=== PATIENT | female | born 1960 | race Caucasian/White ===

== ENCOUNTER 2022-05-29 11:04 | Outpatient (RCR) | payer BC, SELFPAY | END 2022-05-30 23:59 | disposition home or self-care (01) | LOC: CCIC 11:04 | PROVIDERS: PCP Family Medicine; Visit Provider Internal Medicine Hematology & Oncology | DX: C50.911 Malignant neoplasm of unspecified site of right female breast (principal); Z17.0 Estrogen receptor positive status [ER+]; C50.012 Malignant neoplasm of nipple and areola, left female breast; N95.2 Postmenopausal atrophic vaginitis; Z78.0 Asymptomatic menopausal state | CPT/HCPCS: 99212; 99214 ==

== ENCOUNTER 2022-06-06 13:47 | Outpatient (RCR) | payer MEDICARE, SELFPAY | END 2022-06-30 23:59 | disposition home or self-care (01) | LOC: CCIC 13:47 | PROVIDERS: PCP Physician Assistant Medical; Visit Provider Internal Medicine Hematology & Oncology | DX: C50.911 Malignant neoplasm of unspecified site of right female breast (principal) ==

== ENCOUNTER 2022-11-20 11:26 | Outpatient (RCR) | payer BC, SELFPAY ==
--- NOTE | 2022-11-26 13:15 | ONC.NURNOTE ---
At the request of Dr. Azul, Breast Cancer Index testing requested via online portal.
== END 2023-05-19 23:59 | disposition home or self-care (01) ==
LOC: CCIC 11:26
PROVIDERS: Visit Provider Internal Medicine Hematology & Oncology
DX: C50.911 Malignant neoplasm of unspecified site of right female breast (principal); Z17.0 Estrogen receptor positive status [ER+]; Z79.811 Long term (current) use of aromatase inhibitors; D05.12 Intraductal carcinoma in situ of left breast; Z90.12 Acquired absence of left breast and nipple; M85.80 Other specified disorders of bone density and structure, unspecified site; N95.2 Postmenopausal atrophic vaginitis
CPT/HCPCS: 99212; 99214

== ENCOUNTER 2023-07-16 13:45 | Outpatient (RCR) | payer BC, SELFPAY | END 2024-01-12 23:59 | disposition home or self-care (01) | LOC: CCIC 13:45 | PROVIDERS: PCP Family Medicine; Visit Provider Internal Medicine Hematology & Oncology | DX: C50.911 Malignant neoplasm of unspecified site of right female breast (principal); Z17.0 Estrogen receptor positive status [ER+]; C50.012 Malignant neoplasm of nipple and areola, left female breast; D05.12 Intraductal carcinoma in situ of left breast; N95.2 Postmenopausal atrophic vaginitis; Z90.13 Acquired absence of bilateral breasts and nipples | CPT/HCPCS: 99212; 99213; 99214 ==

== ENCOUNTER 2023-11-05 15:18 | Outpatient (CLI) | payer BC, SELFPAY ==
--- NOTE | 2023-11-05 15:30 | CRLHL7_ITS ---
For Patients: As a result of the Century Cures Act, medical imaging exams and procedure reports are released immediately into your electronic medical record. You may view this report before your referring provider. If you have questions, please contact your health care provider. DXA BONE MINERAL DENSITY STUDY Current height (in): 63.0. Weight (lb): 136.0. Menopause age: 55. Ethnicity: White. Reason for exam: Screening. Right breast cancer. 1. Have you had a previous hip or vertebral fracture? No. 2. Have you had any fractures during your adult life which did not result from significant trauma (e.g., auto accident)? No. 3. Did either of your parents have a hip fracture? No. 4. Do you smoke? No. 5. Have you ever taken Glucocorticoids? No. 6. Do you have rheumatoid arthritis? No. 7. Do you have secondary osteoporosis? No. 8. Do you drink 3 or more alcoholic drinks per day? No. 9. Are you being treated for osteoporosis? No. 10. Have you ever taken any of the following medications: Actonel, Evista, Fosamax, Miacalcin, Reclast, Boniva, Forteo, HRT (i.e. estrogen/hormone therapy), Protelos, Prolia, Vitamin D, Calcium, other ??? please specify. ANSWER: Yes, calcium, vitamin D. 11. Do you have any of the following medical conditions: Anorexia or bulimia, asthma or emphysema, end stage renal disease, hyperparathyroidism, any seizure disorders, cancer, inflammatory bowel diseases, hysterectomy, other ??? please specify. ANSWER: Yes, breast cancer. 12. What was your maximum height (inches)? 63. 13. Do you perform weight bearing exercise regularly? No. 14. Do you regularly consume dairy products? Yes. 15. Do you drink caffeinated beverages? Yes. 16. At what age did your period start? 13. 17. Are you premenopausal? No. 18. How many full term pregnancies have you had? 2. 19. Have you ever missed your period for more than 6 months in a row (not including or menopause)? No. TECHNIQUE: Bone mineral density study was performed using the [employer]. FINDINGS: The results of the study expressed as bone mineral density (BMD) are as follows: Lumbar spine L1 to L3: BMD: 0.983 g/cm2. T-score: -0.3. Z-score: 1.3 Neck Left: BMD: 0.597 g/cm2. T-score: -2.3. Z-score: -0.9 Right: BMD: 0.614 g/cm2. T-score: -2.1. Z-score: -0.7 Total Left: BMD: 0.755 g/cm2. T-score: -1.5. Z-score: -0.4 Right: BMD: 0.711 g/cm2. T-score: -1.9. Z-score: -0.8 IMPRESSION: *Osteopenia. *Comparison exams done prior to 05/2020 were performed on different unit, [employer]. COMPARISON: Compared with scan of 09/13/2021, the bone mineral density has increased by 10.0 percent at the spine and decreased by 4.6 percent at the hip. FRAX 10-year Fracture Risk Major Osteoporotic Fracture: 11 percent Hip Fracture: 1.8 percent Reported Risk Factors: [place] () Neck BMD = 0.597, BMI = 24.1 Bean Cuello M.D. Diagnostic Radiologist [email or web address] Transcribed: 11:07 am DW/Dictated by: Bean Cuello MD @ 11/06/2023 8:08:00 AM (Electronically Signed)
== END 2023-11-05 15:19 | disposition home or self-care (01) ==
LOC: RAD 15:19
PROVIDERS: PCP Family Medicine; Visit Provider Internal Medicine Hematology & Oncology
DX: Z13.820 Encounter for screening for osteoporosis (principal); M85.89 Other specified disorders of bone density and structure, multiple sites
CPT/HCPCS: 77080

== ENCOUNTER 2024-08-23 14:13 | Outpatient (RCR) | payer MEDICARE, SELFPAY | END 2025-02-19 23:59 | disposition home or self-care (01) | LOC: CCIC 14:13 | PROVIDERS: PCP Family Medicine; Visit Provider Internal Medicine Hematology & Oncology | DX: C50.911 Malignant neoplasm of unspecified site of right female breast (principal); D05.12 Intraductal carcinoma in situ of left breast; C50.012 Malignant neoplasm of nipple and areola, left female breast; Z17.0 Estrogen receptor positive status [ER+]; M81.0 Age-related osteoporosis without current pathological fracture; Z90.13 Acquired absence of bilateral breasts and nipples | CPT/HCPCS: 99214; G0463 ==

== ENCOUNTER 2024-09-21 10:05 | Outpatient (CLI) | payer MEDICARE, SELFPAY ==
--- NOTE | 2024-09-21 10:15 | CRLHL7_ITS ---
For Patients: As a result of the Century Cures Act, medical imaging exams and procedure reports are released immediately into your electronic medical record. You may view this report before your referring provider. If you have questions, please contact your health care provider. CLINICAL HISTORY: : Palpable unevenness, status post bilateral mastectomy with reconstruction, history breast cancer 9 years ago COMPARISON: CT chest 10/24/2020 TECHNIQUE: Real-time ultrasound imaging of left axillary soft tissues with imaging documentation. Scanning was performed by both the technologist and the radiologist. FINDINGS: Solid heterogeneous hypoechoic nodule within the subcutaneous fat in the left axilla measures 5 x 3 x 5 millimeters. Associated calcifications may be present. No fluid collection. Prominent bony ridge incidentally noted. IMPRESSION: Indeterminate solid hypoechoic nodule measuring 5 millimeters. RECOMMENDATIONS: Ultrasound-guided core needle biopsy should be attempted. The location is difficult and if biopsy is not successful the CT-PET scan should be considered. Results and recommendations were discussed with the patient at the time of the exam. Dictated by Bean Cuello MD @ 09/21/2024 1:00:49 PM (Electronically Signed)
== END 2024-09-21 10:06 | disposition home or self-care (01) ==
LOC: US 10:06
PROVIDERS: PCP Family Medicine; Visit Provider Internal Medicine Hematology & Oncology
DX: R22.32 Localized swelling, mass and lump, left upper limb (principal); Z85.3 Personal history of malignant neoplasm of breast
CPT/HCPCS: 76882

== ENCOUNTER 2024-10-11 08:00 | Outpatient (CLI) | payer MEDICARE, SELFPAY ==
--- NOTE | 2024-10-11 08:15 | CRLHL7_ITS ---
For Patients: As a result of the Century Cures Act, medical imaging exams and procedure reports are released immediately into your electronic medical record. You may view this report before your referring provider. If you have questions, please contact your health care provider. ULTRASOUND-GUIDED CORE NEEDLE BIOPSY OF LEFT AXILLARY SUBCUTANEOUS PALPABLE NODULE WITH CLIP PLACEMENT CLINICAL HISTORY: Postmastectomy. Left axillary lump. COMPARISON STUDIES: Ultrasound 09/21/2024 TECHNIQUE: Real-time ultrasound with image documentation was used for targeting the left axillary lesion. Core biopsy specimens were obtained using an automated gun with an 18-gauge biopsy needle. CONSENT and TIME OUT: The procedure, risks, and alternatives were explained to the patient and a consent was signed. [place] Protocol was followed including pre-procedure verification that relevant information/documentation was available, reviewed and properly matched to the patient; consent accurate and complete; and equipment and supplies available. Time Out was conducted just prior to starting procedure to verify the four required elements: patient identity, correct side/site marked (if applicable), procedure, relevant images/results properly labeled and displayed (if applicable). PROCEDURE: The patient was positioned supine on the ultrasound table. The left axillary nodule was prepped with ChloraPrep. 7 cc of 1 percent lidocaine used for local anesthesia. Core samples were obtained. A sterile metal biopsy clip was placed percutaneously to cindy the lesion position within the lesion. The specimens were placed in 10% formalin and sent to the pathology department. Pressure was held on the biopsy site until all bleeding subsided. The skin incision was closed with Steri-Strips. An ice pack was positioned over the biopsy site. Post-biopsy instructions were reviewed with the patient, and a written copy was given to her. LATERALITY: Left axilla LESION: Hypoechoic solid nodule measuring 5 x 3 x 5 millimeters in the left axilla just beneath the skin. SUSPICION FOR MALIGNANCY: Low, probable scar tissue NUMBER OF SAMPLES: 6 BIOPSY CLIP SHAPE: Oval PROXIMITY OF CLIP TO TARGET: Within the lesion IMPRESSION: Ultrasound-guided left axillary nodule biopsy. When the pathology report is available, an addendum to this report will be made. ACR not applicable Dictated by Bean Cuello MD @ 10/11/2024 12:03:23 PM (Electronically Signed)
== END 2024-10-11 08:01 | disposition home or self-care (01) ==
LOC: US 08:01
PROVIDERS: PCP Family Medicine; Visit Provider Family Medicine
DX: C50.911 Malignant neoplasm of unspecified site of right female breast (principal); C50.012 Malignant neoplasm of nipple and areola, left female breast; D05.12 Intraductal carcinoma in situ of left breast; N63.20 Unspecified lump in the left breast, unspecified quadrant
CPT/HCPCS: 19083; 88305; A4648; A4649